=== PATIENT | male | born 2000 | race Two or more races ===

== ENCOUNTER 2019-04-15 11:25 | Emergency (ER) | payer SELFPAY ==
[~2019-04-15] VITALS: Ht 170.2 cm; Wt 60.3 kg
[2019-04-15 12:07] LABS: Basophils # (auto) 0 uL; Basophils % (auto) 0.2 % (0.0-2.0); Eosinophils # (auto) 0 uL; Hematocrit 47.9 % (41.0-53.0); Hemoglobin 16.5 g/dL (13.5-17.5); Lymphocytes # (auto) 0.3 uL; Lymphocytes % (auto) 1.6 % (10.0-50.0); Mean Corpuscular Hemoglobin 31.4 pg (28.0-32.0); Mean Corpuscular Hgb Conc. 34.6 g/dL (32.0-36.0); Monocytes # (auto) 0.7 uL; Monocytes % (auto) 3.7 % (0.0-12.0); Neutrophils # (auto) 17.4 uL; Neutrophils % (auto) 94.5 % (37.0-80.0); Platelet Count (auto) 231 10^3/uL (140-450); Red Blood Cells 5.26 10^6/uL (4.5-5.90); Red Cell Distribution Width 12.7 % (11.8-14.3); White Blood Cell 18.4 10^3/uL (4.4-10.8)
[2019-04-15 12:30] LABS: Albumin 4.8 g/dL (3.4-5.0); Calcium 9.5 mg/dL (8.5-10.1); Potassium 4.3 mmol/L (3.5-5.1)
[2019-04-15 12:33] LABS: BUN/Creatinine Ratio 14.6; Bilirubin, Total 1.1 mg/dL (0.2-1.0); Total Protein 8.7 g/dL (6.4-8.2)
[2019-04-15 12:43] LABS: Urine Bacteria NONE SEEN /hpf (None Seen); Urine Blood Negative /uL (Negative); Urine Mucus FEW (None Seen); Urine WBC 1 /hpf (0 - 3)
[2019-04-15] MEDS ORDERED: SODIUM CHLORIDE 0.9% 1,000 ML IVB ONE (16:09)
[2019-04-15] MEDS ORDERED: ONDANSETRON HCL 4 MG/2 ML VIAL IV ONE (16:15)
[2019-04-15] MEDS ORDERED: metroNIDAZOLE 500MG/100ML 100 ML IV ONE (16:15)
[2019-04-15] MEDS ORDERED: SODIUM CHLORIDE 0.9% 1,000 ML IV ONE (16:15)
[2019-04-15 17:03] LABS: Magnesium 2.1 mg/dL (1.6-2.6)
[2019-04-15 17:24] LABS: Alcohol, Urine < 3.0 mg/dL (0-5); Amphetamine Screen, Urine NEGATIVE (NEGATIVE); Barbiturate Scree,Urine NEGATIVE (NEGATIVE); Benzodiazephine Screen, Urine NEGATIVE (NEGATIVE); Cannabinoid Screen, Urine POSITIVE (NEGATIVE); Cocaine Screen, Urine NEGATIVE (NEGATIVE); Opiate Scree,Urine NEGATIVE (NEGATIVE); Phencyclidine Screen, Urine NEGATIVE (NEGATIVE)
[2019-04-15 19:14] LABS: Basophils # (auto) 0 uL; Basophils % (auto) 0.1 % (0.0-2.0); Eosinophils # (auto) 0 uL; Hematocrit 42.2 % (41.0-53.0); Hemoglobin 14.3 g/dL (13.5-17.5); Lymphocytes # (auto) 0.5 uL; Mean Corpuscular Hemoglobin 30.8 pg (28.0-32.0); Mean Corpuscular Hgb Conc. 33.9 g/dL (32.0-36.0); Mean Corpuscular Volume 90.8 fL (80.0-100.0); Monocytes # (auto) 0.4 uL; Monocytes % (auto) 3.1 % (0.0-12.0); Neutrophils # (auto) 11.8 uL; Neutrophils % (auto) 92.8 % (37.0-80.0); Platelet Count (auto) 187 10^3/uL (140-450); Red Blood Cells 4.64 10^6/uL (4.5-5.90); Red Cell Distribution Width 12.8 % (11.8-14.3); White Blood Cell 12.8 10^3/uL (4.4-10.8)
[2019-04-15 20:04] VITALS: BP 110/73
== END 2019-04-15 20:13 | disposition home or self-care (01) ==
LOC: ER 11:25
DX: K52.9 Noninfective gastroenteritis and colitis, unspecified (principal); R11.2 Nausea with vomiting, unspecified; F12.10 Cannabis abuse, uncomplicated
CPT/HCPCS: 36415; 74176; 80053; 80307; 81001; 82150; 83690; 83735; 85025; 94761; 96365; 99284; J3490

== ENCOUNTER 2019-10-28 09:36 | Emergency (ER) | payer MEDICAID ==
[~2019-10-28] VITALS: Ht 170.2 cm; Wt 59.0 kg
[2019-10-28 09:44] VITALS: BP 115/61
== END 2019-10-28 11:56 | disposition home or self-care (01) ==
LOC: ER 09:36
DX: K60.2 Anal fissure, unspecified (principal)

== ENCOUNTER 2020-12-04 20:48 | Emergency (ER) | payer MEDICAID ==
[~2020-12-04] VITALS: Ht 170.2 cm; Wt 68.0 kg
[2020-12-05] MEDS ORDERED: NEOMYCIN-BACITRACIN-POLYM UNITDOSE PKG TOP OINT TOP ONE (00:15)
[2020-12-05 00:40] VITALS: BP 130/84
[2020-12-05] MEDS ORDERED: KETOROLAC TROMETH 60MG/2ML VIAL IM ONE (00:45)
== END 2020-12-05 00:45 | disposition home or self-care (01) ==
LOC: ER 20:51
DX: S81.811A Laceration without foreign body, right lower leg, initial encounter (principal); S96.912A Strain of unspecified muscle and tendon at ankle and foot level, left foot, initial encounter; S86.911A Strain of unspecified muscle(s) and tendon(s) at lower leg level, right leg, initial encounter; V49.9XXA Car occupant (driver) (passenger) injured in unspecified traffic accident, initial encounter; Y93.89 Activity, other specified; Y92.89 Other specified places as the place of occurrence of the external cause; Y99.8 Other external cause status
CPT/HCPCS: 12001; 71250; 73560; 73610; 74176; 96372; 99285; J1885